=== PATIENT | male | born 1965 | race Caucasian/White ===

== ENCOUNTER 2018-03-13 16:14 | Emergency (ER) | payer BC ==
[~2018-03-13] VITALS: Ht 177.8 cm; Wt 81.2 kg
[2018-03-13 17:13] LABS: HEMOGLOBIN 13.9 G/DL (12.5-16.6); MCH 29.6 PG (29.0-34.0); MCHC 33.9 G/DL (30.0-36.0); MCV 87.2 FL (86-99); PLATELET COUNT 221 K/uL (156-360); RBC DIS.WIDTH-CV 12.6 % (11.8-14.6); RBC DIS.WIDTH-SD 40.1 % (39-53); WHITE BLOOD COUNT 10.2 K/uL (4.1-10.2)
[2018-03-13 17:20] LABS: CHLORIDE 106 mEq/L (99-109); POTASSIUM 4.3 mEq/L (3.7-5.4); SODIUM 140 mEq/L (136-147)
[2018-03-13 17:22] LABS: GLUCOSE 144 mg/dL (70-99); TOTAL PROTEIN 6.5 g/dL (6.4-8.3)
[2018-03-13 17:24] LABS: TOTAL BILIRUBIN 0.7 mg/dL (0.0-1.0)
[2018-03-13 17:26] LABS: ALKALINE PHOSPHATASE 63 IU/L (3-129); CREATININE 2.2 mg/dL (0.6-1.3)
[2018-03-13 17:27] LABS: AST (GOT) 18 IU/L (2-34); UREA NITROGEN (BUN) 20 mg/dL (9-23)
[2018-03-13 17:29] LABS: ALT (GPT) 15 IU/L (3-49); GFR ESTIMATE (CALCULATED) 33 mL/min/ (58.99-99999)
[2018-03-13 18:41] LABS: APPEARANCE CLEAR ((CLEAR)); BILIRUBIN NEGATIVE; BLOOD NEGATIVE; COLOR YELLOW ((YELLOW)); GLUCOSE (STRIP) NEGATIVE; KETONES NEGATIVE; LEUKOCYTES NEGATIVE; NITRITE NEGATIVE; PROTEIN (STRIP) NEGATIVE; SPECIFIC GRAVITY 1.016 (1.000-1.030); UCUL ADDED? NO; UROBILINOGEN 0.2 MG/DL (0.2-1.0)
[2018-03-13] MEDS ORDERED: FLOMAX0.4 MG PO (20:10)
[2018-03-13] MEDS ORDERED: PERCOCET 10/1 TABLET PO (20:10)
[2018-03-13 20:41] VITALS: BP 117/74
== END 2018-03-13 20:45 | disposition home or self-care (01) ==
LOC: EME 16:14
PROVIDERS: Emergency Medicine
DX: N20.2 Calculus of kidney with calculus of ureter (principal); Z87.442 Personal history of urinary calculi
CPT/HCPCS: 74176; 80053; 81003; 85027; 99281; 99285; J1885; J3010; J7030